=== PATIENT | male | born 1930 | race Caucasian/White ===

== ENCOUNTER 2021-03-30 23:01 | Inpatient (IN) ==
[2021-03-30 23:42] LABS: ABS Eosinophils 0.1 10^3/ul (0-0.6); ABS Lymphocytes 0.5 10^3/ul (1.0-4.8); ABS Monocytes 0.3 10^3/ul (0-0.8); Eosinophil % 0.8 %; Hematocrit 29 % (42-52); Hemoglobin 9.7 g/dL (14.0-18.0); Lymphocyte % 7.3 %; Mean Corpuscular HGB Conc 33 g/dL (31-36); Mean Corpuscular Hemoglobin 31 pg (27-31); Mean Corpuscular Volume 94 fL (80-94); Mean Platelet Volume 8.9 fL (7.4-10.4); Platelet Count 196 10^3/uL (150-450); Red Blood Count 3.09 10^6 /uL (4.18-5.48); Red Cell Distribution Width 13 % (10-15); White Blood Count 6.9 10^3/uL (3.5-10.8)
[2021-03-30 23:49] LABS: INR 1.12 (0.86-1.15)
[2021-03-30 23:58] LABS: ALT 10 U/L (7-52); AST 15 U/L (13-39); Albumin 3.4 g/dL (3.2-5.2); Alkaline Phosphatase 78 U/L (35-149); Anion Gap 11 mmol/L (2-11); Blood Urea Nitrogen 80 mg/dL (6-24); CO2 Carbon Dioxide 19 mmol/L (22-32); Chloride 100 mmol/L (101-111); Creatine Kinase 42 U/L (10-223); Globulin 3.4 g/dL (2-4); Glucose 301 mg/dL (70-100); Magnesium 2.3 mg/dL (1.9-2.7); Sodium 130 mmol/L (135-145); Total Protein 6.8 g/dL (6.4-8.9)
[2021-03-31] MEDS ORDERED: NS 0.9% 1000 ml BAG 1,000 ML IV SCH (00:15)
[2021-03-31 00:19] LABS: Ammonia 30 mcmol/L (16-53)
[2021-03-31 00:24] LABS: Urine Appearance Clear; Urine Bilirubin Negative (Negative); Urine Blood Negative (Negative); Urine Color Yellow; Urine Glucose Negative (Negative); Urine Ketones Negative (Negative); Urine Nitrite Negative (Negative); Urine Protein Negative (Negative); Urine Urobilinogen Negative (Negative)
[2021-03-31 00:25] LABS: Troponin I 0.05 ng/mL (<0.03)
[2021-03-31 00:50] LABS: BNP 433 pg/mL (<=100)
[2021-03-31 01:17] LABS: Acetaminophen < 15 mcg/mL; Alcohol, S < 13 mg/dL (<13); Salicylate < 2.50 mg/dL (<30)
[2021-03-31 01:33] LABS: TSH Ultra Thyroid Stim Horm 0.88 mcIU/mL (0.34-5.60)
[2021-03-31 05:35] LABS: Blood Urea Nitrogen 81 mg/dL (6-24)
[2021-03-31 05:37] LABS: Rapid COVID-19 Molecular Undetected (Undetected)
[2021-03-31 05:39] LABS: Urine Creatinine Concentration 80.48 mg/dL
[2021-03-31 05:40] LABS: Urine Benzodiazepine Screen None Detected (None Detect); Urine Cannabinoids Screen None Detected (None Detect); Urine Opiates Screen None Detected (None Detect)
[2021-03-31 05:53] LABS: Troponin I 0.15 ng/mL (<0.03)
[2021-03-31] MEDS ORDERED: Al Hydrox/Mg Hydrox/Simet LIQ 30 ML UDC PO PRN (16:52)
[2021-03-31] MEDS ORDERED: D5LR 1000 ml BAG 1,000 ML IV SCH (17:00)
[2021-03-31] MEDS ORDERED: Magnesium Hydroxide LIQ 30 ML UDC PO PRN (17:41)
[2021-03-31] MEDS ORDERED: Senna TAB 8.6 mg TAB PO PRN (17:41)
[2021-03-31] MEDS ORDERED: Polyethylene Glycol 3350 17 GM PACKET PO PRN (17:41)
[2021-03-31 18:16] LABS: Blood Urea Nitrogen 76 mg/dL (6-24); CO2 Carbon Dioxide 22 mmol/L (22-32); Calcium 9.2 mg/dL (8.6-10.3); Chloride 107 mmol/L (101-111); Glucose 90 mg/dL (70-100); Sodium 135 mmol/L (135-145)
[2021-03-31 18:19] LABS: Anion Gap 6 mmol/L (2-11); Potassium 5.6 mmol/L (3.5-5.0)
[2021-03-31 18:36] LABS: Troponin I 0.18 ng/mL (<0.03)
[2021-03-31 18:56] LABS: Urine Appearance Clear; Urine Bilirubin Negative (Negative); Urine Blood Negative (Negative); Urine Color Yellow; Urine Glucose Negative (Negative); Urine Ketones Negative (Negative); Urine Nitrite Negative (Negative); Urine Protein Negative (Negative); Urine Urobilinogen Negative (Negative)
[2021-03-31 19:25] LABS: C Reactive Protein 73.55 mg/L (<8.01)
[2021-03-31] MEDS ORDERED: Patiromer POWDER 8.4 GM PAK PO ONE (20:35)
[2021-03-31] MEDS ORDERED: Lidocaine Patch REMOVE PATCH PATCH OFF SCH (21:00)
[2021-03-31] MEDS ORDERED: Patiromer POWDER 8.4 GM PAK PO SCH (21:00)
[2021-03-31] MEDS: Lidocaine PATCH 5% PATCH TRANSDERM SCH (21:49)
[2021-03-31] MEDS: Heparin 5000 UNITS/ML 1 mL VIAL SUBCUT SCH (21:54)
[2021-03-31] MEDS: D5W 1/2 NS 1000 ml BAG 1,000 ML IV SCH (22:08)
[2021-04-01] MEDS: Magnesium Hydroxide LIQ 30 ML UDC PO SCH ×2 (02:29→07:57)
[2021-04-01 04:53] LABS: ABS Eosinophils 0.1 10^3/ul (0-0.6); ABS Lymphocytes 0.9 10^3/ul (1.0-4.8); ABS Monocytes 0.5 10^3/ul (0-0.8); ABS Neutrophils 5.7 10^3/ul (1.5-7.7); Eosinophil % 1.8 %; Hematocrit 28 % (42-52); Hemoglobin 9.4 g/dL (14.0-18.0); Lymphocyte % 12.8 %; Mean Corpuscular HGB Conc 34 g/dL (31-36); Mean Corpuscular Hemoglobin 32 pg (27-31); Mean Corpuscular Volume 94 fL (80-94); Mean Platelet Volume 9.1 fL (7.4-10.4); Platelet Count 193 10^3/uL (150-450); Red Blood Count 2.93 10^6 /uL (4.18-5.48); Red Cell Distribution Width 13 % (10-15); White Blood Count 7.3 10^3/uL (3.5-10.8)
[2021-04-01 05:07] LABS: Calcium 8.9 mg/dL (8.6-10.3)
[2021-04-01 05:14] LABS: Potassium 5.3 mmol/L (3.5-5.0)
[2021-04-01] MEDS: Heparin 5000 UNITS/ML 1 mL VIAL SUBCUT SCH (05:55)
[2021-04-01] MEDS: Lidocaine PATCH 5% PATCH TRANSDERM SCH (07:57)
[2021-04-01] MEDS: D5W 1/2 NS 1000 ml BAG 1,000 ML IV SCH (08:02)
[2021-04-01] MEDS ORDERED: Sodium Polystyrene ORAL.SUSP 15 GM/60 ML BTL PO ONE (09:00)
[2021-04-01 12:39] VITALS: BP 130/38
== END 2021-04-01 13:40 | DRG 694 ==
LOC: ED 23:01 → MED 03-31 16:53 → SUATTDRO 03-31 16:53 → MED 03-31 20:59
PROVIDERS: ADMIT Internal Medicine; ATTEND Hospitalist

== ENCOUNTER 2021-05-26 21:59 | Inpatient (IN) ==
[2021-05-26 22:40] LABS: ABS Eosinophils 0.2 10^3/ul (0-0.6); ABS Lymphocytes 0.7 10^3/ul (1.0-4.8); ABS Monocytes 0.7 10^3/ul (0-0.8); Eosinophil % 2.8 %; Hematocrit 25 % (42-52); Hemoglobin 8.2 g/dL (14.0-18.0); Lymphocyte % 8.7 %; Mean Corpuscular HGB Conc 33 g/dL (31-36); Mean Corpuscular Hemoglobin 32 pg (27-31); Mean Corpuscular Volume 96 fL (80-94); Mean Platelet Volume 8.2 fL (7.4-10.4); Platelet Count 232 10^3/uL (150-450); Red Cell Distribution Width 14 % (10-15); White Blood Count 7.7 10^3/uL (3.5-10.8)
[2021-05-26 22:47] LABS: Activated Partial Thrombo Time 30.4 seconds (26.0-38.0); INR 1.26 (0.86-1.15)
[2021-05-26 22:56] LABS: ALT 10 U/L (7-52); AST 14 U/L (13-39); Albumin 3.2 g/dL (3.2-5.2); Albumin/Globulin Ratio 0.9 (1-3); Alkaline Phosphatase 83 U/L (35-149); Anion Gap 6 mmol/L (2-11); Blood Urea Nitrogen 37 mg/dL (6-24); C Reactive Protein 37.77 mg/L (<8.01); CO2 Carbon Dioxide 26 mmol/L (22-32); Calcium 8.8 mg/dL (8.6-10.3); Chloride 106 mmol/L (101-111); Globulin 3.4 g/dL (2-4); Glucose 228 mg/dL (70-100); Potassium 4.6 mmol/L (3.5-5.0); Sodium 138 mmol/L (135-145); Total Protein 6.6 g/dL (6.4-8.9); eGFR CKD-EPI 49.6 (>60)
[2021-05-26] MEDS ORDERED: Furosemide 40 mg/4 ml IV VIAL IV ONE (23:01)
[2021-05-26 23:13] LABS: Troponin I 0.04 ng/mL (<0.03)
[2021-05-27] MEDS: cefTRIAXone 1 gm/50 mL NS BAG 1 GM/50 ML BAG IVPB SCH (01:40)
[2021-05-27 02:33] LABS: Troponin I 0.05 ng/mL (<0.03)
[2021-05-27] MEDS ORDERED: Dextrose 50% Syringe 50 ml 25 GM/50 ML SYRINGE IV PUSH PRN (02:56)
[2021-05-27] MEDS ORDERED: Magnesium Hydroxide LIQ 30 ML UDC PO PRN (03:21)
[2021-05-27] MEDS ORDERED: Senna TAB 8.6 mg TAB PO PRN (03:21)
[2021-05-27 03:52] LABS: Urine Appearance Cloudy; Urine Bilirubin Negative (Negative); Urine Blood 2+ (Negative); Urine Color Yellow; Urine Glucose Negative (Negative); Urine Ketones Negative (Negative); Urine Nitrite Positive (Negative); Urine Protein Negative (Negative); Urine Specific Gravity 1.009 (1.002-1.030); Urine Urobilinogen Negative (Negative)
[2021-05-27 04:11] LABS: Urine Bacteria 2+ (Absent); Urine Red Blood Cell 2+(6-10/hpf) (Absent); Urine Squamous Epithelial Cell Present (Absent); Urine White Blood Cell 3+(>20/hpf) (Absent)
[2021-05-27 06:26] LABS: ABS Eosinophils 0.3 10^3/ul (0-0.6); ABS Lymphocytes 0.9 10^3/ul (1.0-4.8); ABS Monocytes 0.8 10^3/ul (0-0.8); ABS Neutrophils 5.1 10^3/ul (1.5-7.7); Hematocrit 24 % (42-52); Hemoglobin 7.9 g/dL (14.0-18.0); Lymphocyte % 13.2 %; Mean Corpuscular HGB Conc 33 g/dL (31-36); Mean Corpuscular Hemoglobin 32 pg (27-31); Mean Corpuscular Volume 95 fL (80-94); Platelet Count 225 10^3/uL (150-450); Red Blood Count 2.49 10^6 /uL (4.18-5.48); Red Cell Distribution Width 14 % (10-15); White Blood Count 7.2 10^3/uL (3.5-10.8)
[2021-05-27 06:44] LABS: Anion Gap 5 mmol/L (2-11); Blood Urea Nitrogen 36 mg/dL (6-24); CO2 Carbon Dioxide 27 mmol/L (22-32); Calcium 8.7 mg/dL (8.6-10.3); Chloride 108 mmol/L (101-111); Glucose 154 mg/dL (70-100); Potassium 4.4 mmol/L (3.5-5.0); Sodium 140 mmol/L (135-145); eGFR CKD-EPI 51.4 (>60)
[2021-05-27 08:05] LABS: Troponin I 0.05 ng/mL (<0.03)
[2021-05-27 08:55] LABS: Ferritin 245.1 ng/mL (24-336)
[2021-05-27] MEDS ORDERED: Enoxaparin 40 MG/0.4 ML SYR SUBCUT SCH (09:00)
[2021-05-27] MEDS: Enoxaparin 40 MG/0.4 ML SYR SUBCUT SCH (11:08)
[2021-05-27] MEDS: Albuterol HFA INHALER 8 gm MDI INH PRN (17:23)
[2021-05-27] MEDS ORDERED: Albuterol/Ipratropium NEB.SOL (2.5/0.5 MG) 3 ML NEB.SOLN INH PRN (18:51)
[2021-05-27] MEDS ORDERED: Furosemide 20 mg/2 ml IV VIAL IV ONE (20:16)
[2021-05-27] MEDS ORDERED: Albuterol/Ipratropium NEB.SOL (2.5/0.5 MG) 3 ML NEB.SOLN INH ONE (20:17)
[2021-05-27 21:21] LABS: PCO2 Arterial 41 mmHg (35-45); PO2 Arterial 103 mmHg (80-100)
[2021-05-27] MEDS ORDERED: Iodixanol (CONTRAST) 320 MG/ML 100 ML SDV IV ONE (21:49)
[2021-05-27 21:55] LABS: Anion Gap 10 mmol/L (2-11); Blood Urea Nitrogen 39 mg/dL (6-24); CO2 Carbon Dioxide 24 mmol/L (22-32); Calcium 9.5 mg/dL (8.6-10.3); Chloride 106 mmol/L (101-111); Glucose 240 mg/dL (70-100); Potassium 4.3 mmol/L (3.5-5.0); Sodium 140 mmol/L (135-145); eGFR CKD-EPI 46.3 (>60)
[2021-05-27] MEDS ORDERED: Azithromycin 500 mg/250 ml NS 500 MG/250 ML BAG IVPB SCH (22:00)
[2021-05-27 22:01] LABS: ABS Basophils 0.1 10^3/ul (0-0.2); ABS Lymphocytes 0.5 10^3/ul (1.0-4.8); ABS Monocytes 0.7 10^3/ul (0-0.8); ABS Neutrophils 11.3 10^3/ul (1.5-7.7); Eosinophil % 0.1 %; Hematocrit 29 % (42-52); Hemoglobin 9.4 g/dL (14.0-18.0); Lymphocyte % 4.1 %; Mean Corpuscular HGB Conc 33 g/dL (31-36); Mean Corpuscular Hemoglobin 32 pg (27-31); Mean Corpuscular Volume 96 fL (80-94); Mean Platelet Volume 8.6 fL (7.4-10.4); Platelet Count 270 10^3/uL (150-450); Red Blood Count 2.98 10^6 /uL (4.18-5.48); Red Cell Distribution Width 14 % (10-15); White Blood Count 12.6 10^3/uL (3.5-10.8)
[2021-05-27 22:18] LABS: Troponin I 0.07 ng/mL (<0.03)
[2021-05-28 02:31] LABS: Troponin I 0.49 ng/mL (<0.03)
[2021-05-28 06:21] LABS: ABS Lymphocytes 0.7 10^3/ul (1.0-4.8); ABS Monocytes 0.6 10^3/ul (0-0.8); ABS Neutrophils 11.2 10^3/ul (1.5-7.7); Hematocrit 29 % (42-52); Hemoglobin 9.7 g/dL (14.0-18.0); Lymphocyte % 5.4 %; Mean Corpuscular HGB Conc 33 g/dL (31-36); Mean Corpuscular Hemoglobin 32 pg (27-31); Mean Corpuscular Volume 97 fL (80-94); Mean Platelet Volume 8.7 fL (7.4-10.4); Platelet Count 302 10^3/uL (150-450); Red Blood Count 3.04 10^6 /uL (4.18-5.48); Red Cell Distribution Width 14 % (10-15); White Blood Count 12.5 10^3/uL (3.5-10.8)
[2021-05-28 06:41] LABS: Anion Gap 10 mmol/L (2-11); Blood Urea Nitrogen 42 mg/dL (6-24); CO2 Carbon Dioxide 27 mmol/L (22-32); Calcium 9.7 mg/dL (8.6-10.3); Chloride 105 mmol/L (101-111); Glucose 188 mg/dL (70-100); Magnesium 2.1 mg/dL (1.9-2.7); Potassium 4.2 mmol/L (3.5-5.0); Sodium 142 mmol/L (135-145); eGFR CKD-EPI 45.6 (>60)
[2021-05-28 07:04] LABS: Troponin I 1.32 ng/mL (<0.03)
[2021-05-28] MEDS ORDERED: Furosemide 40 mg/4 ml IV VIAL ONE (07:35)
[2021-05-28] MEDS ORDERED: Prochlorperazine 5 mg/ml 2 ml VIAL (10 mg) IV PRN (07:49)
[2021-05-28] MEDS ORDERED: Nitro 2% OINT (Nitroglycerin) 1 INCH/PAK ONE (08:20)
[2021-05-28] MEDS ORDERED: Nitro 2% OINT (Nitroglycerin) 1 INCH/PAK TOPICAL ONE (08:25)
[2021-05-28] MEDS ORDERED: Furosemide 40 mg/4 ml IV VIAL IV ONE ×2 (08:25→14:42)
[2021-05-28] MEDS: cefTRIAXone 1 gm/50 mL NS BAG 1 GM/50 ML BAG IVPB SCH (08:26)
[2021-05-28] MEDS: Enoxaparin 40 MG/0.4 ML SYR SUBCUT SCH (08:32)
[2021-05-28] MEDS ORDERED: Enoxaparin 100 MG/ML SYR SUBCUT SCH ×2 (09:00→21:00)
[2021-05-28] MEDS ORDERED: Albuterol/Ipratropium NEB.SOL (2.5/0.5 MG) 3 ML NEB.SOLN INH PRN (09:10)
[2021-05-28 09:29] LABS: PCO2 Arterial 36 mmHg (35-45); PO2 Arterial 151 mmHg (80-100)
[2021-05-28] MEDS ORDERED: Perflutren Lipid Microsphere 3 ML VIAL ONE (11:02)
[2021-05-28] MEDS ORDERED: Enoxaparin 60 MG/0.6 ML SYR SUBCUT ONE (11:56)
[2021-05-28 14:05] LABS: Troponin I 1.31 ng/mL (<0.03)
[2021-05-28] MEDS: Cefepime 2 GM in Dextrose 2 GM/50 ML BAG IV SCH (15:44)
[2021-05-28 15:58] LABS: Ferritin 730.2 ng/mL (24-336)
[2021-05-28 19:07] LABS: Hematocrit 27 % (42-52); Hemoglobin 8.8 g/dL (14.0-18.0); Mean Corpuscular HGB Conc 32 g/dL (31-36); Mean Corpuscular Hemoglobin 31 pg (27-31); Mean Corpuscular Volume 96 fL (80-94); Mean Platelet Volume 8.5 fL (7.4-10.4); Platelet Count 278 10^3/uL (150-450); Red Blood Count 2.84 10^6 /uL (4.18-5.48); Red Cell Distribution Width 14 % (10-15); White Blood Count 12.5 10^3/uL (3.5-10.8)
[2021-05-28] MEDS: Pantoprazole VIAL 40 MG VIAL IV SCH (19:18)
[2021-05-28 19:26] LABS: Anion Gap 12 mmol/L (2-11); Blood Urea Nitrogen 51 mg/dL (6-24); CO2 Carbon Dioxide 27 mmol/L (22-32); Calcium 9.1 mg/dL (8.6-10.3); Chloride 104 mmol/L (101-111); Glucose 252 mg/dL (70-100); Potassium 3.8 mmol/L (3.5-5.0); Sodium 143 mmol/L (135-145); eGFR CKD-EPI 38.8 (>60)
[2021-05-28 19:28] LABS: Hypochromasia 1+; Polychromasia 1+
[2021-05-28 19:29] LABS: ABS Lymphocytes 0.3 10^3/ul (1.0-4.8); ABS Monocytes 0.6 10^3/ul (0-0.8); ABS Neutrophils 11.5 10^3/ul (1.5-7.7)
[2021-05-28 19:34] LABS: Troponin I 1.12 ng/mL (<0.03)
[2021-05-28 22:47] LABS: Hematocrit 26 % (42-52); Hemoglobin 8.6 g/dL (14.0-18.0); Mean Corpuscular HGB Conc 33 g/dL (31-36); Mean Corpuscular Hemoglobin 31 pg (27-31); Mean Corpuscular Volume 96 fL (80-94); Mean Platelet Volume 8.5 fL (7.4-10.4); Platelet Count 266 10^3/uL (150-450); Red Blood Count 2.74 10^6 /uL (4.18-5.48); Red Cell Distribution Width 14 % (10-15); White Blood Count 12.4 10^3/uL (3.5-10.8)
[2021-05-29] MEDS: Cefepime 2 GM in Dextrose 2 GM/50 ML BAG IV SCH ×2 (04:23→16:07)
[2021-05-29 05:56] LABS: ABS Lymphocytes 0.6 10^3/ul (1.0-4.8); ABS Neutrophils 10.1 10^3/ul (1.5-7.7); Eosinophil % 0.2 %; Hematocrit 26 % (42-52); Hemoglobin 8.4 g/dL (14.0-18.0); Lymphocyte % 4.9 %; Mean Corpuscular HGB Conc 32 g/dL (31-36); Mean Corpuscular Hemoglobin 31 pg (27-31); Mean Corpuscular Volume 97 fL (80-94); Mean Platelet Volume 8.9 fL (7.4-10.4); Platelet Count 252 10^3/uL (150-450); Red Blood Count 2.72 10^6 /uL (4.18-5.48); Red Cell Distribution Width 14 % (10-15); White Blood Count 11.7 10^3/uL (3.5-10.8)
[2021-05-29 06:35] LABS: Troponin I 0.99 ng/mL (<0.03)
[2021-05-29 06:39] LABS: Magnesium 2.1 mg/dL (1.9-2.7)
[2021-05-29 08:11] LABS: Albumin 3.1 g/dL (3.2-5.2); Calcium 8.5 mg/dL (8.6-10.3); Potassium 3.8 mmol/L (3.5-5.0); Total Bilirubin 0.5 mg/dL (0.2-1.0)
[2021-05-29 08:16] LABS: Globulin 3.1 g/dL (2-4); Total Protein 6.2 g/dL (6.4-8.9); eGFR CKD-EPI 36.5 (>60)
[2021-05-29] MEDS: Pantoprazole VIAL 40 MG VIAL IV SCH ×2 (08:35→22:05)
[2021-05-29] MEDS: Insulin GLARGINE 100 un/ml 10 ml VIAL SUBCUT SCH (08:35)
[2021-05-29] MEDS ORDERED: Enoxaparin 40 MG/0.4 ML SYR SUBCUT SCH (09:00)
[2021-05-29 09:54] LABS: % Iron Saturation 17 % (14 - 50); Total Iron Binding Capacity 198 mcg/dL (250 - 400)
[2021-05-29] MEDS: Albuterol/Ipratropium NEB.SOL (2.5/0.5 MG) 3 ML NEB.SOLN INH SCH ×3 (11:23→20:32)
[2021-05-29 18:42] LABS: Transferrin 168 mg/dL (200 - 360)
[2021-05-29 21:48] LABS: ABS Lymphocytes 0.7 10^3/ul (1.0-4.8); ABS Monocytes 0.8 10^3/ul (0-0.8); ABS Neutrophils 9.3 10^3/ul (1.5-7.7); Hematocrit 25 % (42-52); Hemoglobin 8.4 g/dL (14.0-18.0); Lymphocyte % 6.5 %; Mean Corpuscular HGB Conc 33 g/dL (31-36); Mean Corpuscular Hemoglobin 32 pg (27-31); Mean Corpuscular Volume 97 fL (80-94); Mean Platelet Volume 8.9 fL (7.4-10.4); Platelet Count 238 10^3/uL (150-450); Red Blood Count 2.59 10^6 /uL (4.18-5.48); Red Cell Distribution Width 14 % (10-15); White Blood Count 10.8 10^3/uL (3.5-10.8)
[2021-05-30] MEDS: Cefepime 2 GM in Dextrose 2 GM/50 ML BAG IV SCH ×2 (03:33→16:59)
[2021-05-30 07:12] LABS: ABS Lymphocytes 0.9 10^3/ul (1.0-4.8); ABS Monocytes 0.9 10^3/ul (0-0.8); ABS Neutrophils 8.1 10^3/ul (1.5-7.7); Eosinophil % 0.1 %; Hematocrit 25 % (42-52); Hemoglobin 8.3 g/dL (14.0-18.0); Lymphocyte % 9.1 %; Mean Corpuscular HGB Conc 33 g/dL (31-36); Mean Corpuscular Hemoglobin 32 pg (27-31); Mean Corpuscular Volume 97 fL (80-94); Mean Platelet Volume 8.6 fL (7.4-10.4); Platelet Count 223 10^3/uL (150-450); Red Blood Count 2.57 10^6 /uL (4.18-5.48); Red Cell Distribution Width 14 % (10-15); White Blood Count 9.9 10^3/uL (3.5-10.8)
[2021-05-30 07:21] LABS: Calcium 8.4 mg/dL (8.6-10.3); Potassium 3.4 mmol/L (3.5-5.0); eGFR CKD-EPI 41.5 (>60)
[2021-05-30] MEDS: Albuterol/Ipratropium NEB.SOL (2.5/0.5 MG) 3 ML NEB.SOLN INH SCH ×3 (08:15→15:44)
[2021-05-30] MEDS ORDERED: Magnesium Sulfate 2 gm BAG 2 GM/50 ML BAG IVPB ONE (08:19)
[2021-05-30] MEDS: Pantoprazole VIAL 40 MG VIAL IV SCH ×2 (08:58→21:22)
[2021-05-30] MEDS: Insulin GLARGINE 100 un/ml 10 ml VIAL SUBCUT SCH (09:00)
[2021-05-30] MEDS ORDERED: Furosemide 40 mg/4 ml IV VIAL IV ONE (11:20)
[2021-05-31] MEDS: Cefepime 2 GM in Dextrose 2 GM/50 ML BAG IV SCH ×2 (03:25→15:55)
[2021-05-31 05:43] LABS: ABS Basophils 0.1 10^3/ul (0-0.2); ABS Neutrophils 7.8 10^3/ul (1.5-7.7); Eosinophil % 0.1 %; Hematocrit 25 % (42-52); Hemoglobin 8.4 g/dL (14.0-18.0); Lymphocyte % 10.2 %; Mean Corpuscular HGB Conc 34 g/dL (31-36); Mean Corpuscular Hemoglobin 32 pg (27-31); Mean Corpuscular Volume 96 fL (80-94); Mean Platelet Volume 8.6 fL (7.4-10.4); Platelet Count 225 10^3/uL (150-450); Red Blood Count 2.59 10^6 /uL (4.18-5.48); Red Cell Distribution Width 14 % (10-15); White Blood Count 9.9 10^3/uL (3.5-10.8)
[2021-05-31 06:00] LABS: Calcium 8.4 mg/dL (8.6-10.3); Potassium 3.6 mmol/L (3.5-5.0)
[2021-05-31] MEDS ORDERED: Iron Sucrose 200 MG in NS 0.9% 100 ml BAG 100 ML IVPB ONE (06:38)
[2021-05-31 07:05] LABS: Magnesium 2.4 mg/dL (1.9-2.7)
[2021-05-31] MEDS ORDERED: Polyethylene Glycol 3350 17 GM PACKET PO PRN (07:08)
[2021-05-31] MEDS ORDERED: Furosemide 20 mg/2 ml IV VIAL IV ONE ×2 (07:15→08:59)
[2021-05-31] MEDS: Pantoprazole VIAL 40 MG VIAL IV SCH ×2 (08:09→20:23)
[2021-05-31] MEDS: Insulin GLARGINE 100 un/ml 10 ml VIAL SUBCUT SCH (08:13)
[2021-05-31] MEDS: Albuterol/Ipratropium NEB.SOL (2.5/0.5 MG) 3 ML NEB.SOLN INH SCH ×2 (08:13→12:17)
[2021-05-31] MEDS: Senna TAB 8.6 mg TAB PO SCH (20:23)
[2021-06-01] MEDS: Cefepime 2 GM in Dextrose 2 GM/50 ML BAG IV SCH ×2 (02:56→15:41)
[2021-06-01 06:27] LABS: ABS Eosinophils 0.1 10^3/ul (0-0.6); ABS Lymphocytes 0.9 10^3/ul (1.0-4.8); ABS Monocytes 0.9 10^3/ul (0-0.8); ABS Neutrophils 7.1 10^3/ul (1.5-7.7); Eosinophil % 0.9 %; Hematocrit 25 % (42-52); Hemoglobin 8.4 g/dL (14.0-18.0); Mean Corpuscular HGB Conc 34 g/dL (31-36); Mean Corpuscular Hemoglobin 32 pg (27-31); Mean Corpuscular Volume 96 fL (80-94); Mean Platelet Volume 8.8 fL (7.4-10.4); Platelet Count 215 10^3/uL (150-450); Red Blood Count 2.61 10^6 /uL (4.18-5.48); Red Cell Distribution Width 14 % (10-15); White Blood Count 9.1 10^3/uL (3.5-10.8)
[2021-06-01 06:48] LABS: Calcium 8.3 mg/dL (8.6-10.3); Potassium 3.2 mmol/L (3.5-5.0); eGFR CKD-EPI 40.6 (>60)
[2021-06-01] MEDS ORDERED: Furosemide 40 mg/4 ml IV VIAL IV ONE (08:59)
[2021-06-01] MEDS: Insulin GLARGINE 100 un/ml 10 ml VIAL SUBCUT SCH (09:55)
[2021-06-01] MEDS ORDERED: Potassium Chlor 20 meq TAB.ER PO ONE (12:56)
[2021-06-01] MEDS: Albuterol/Ipratropium NEB.SOL (2.5/0.5 MG) 3 ML NEB.SOLN INH SCH ×2 (13:09→19:55)
[2021-06-01] MEDS ORDERED: Insulin GLARGINE 100 un/ml 10 ml VIAL SUBCUT SCH (21:00)
[2021-06-01] MEDS: Senna TAB 8.6 mg TAB PO SCH (21:51)
[2021-06-02] MEDS: Cefepime 2 GM in Dextrose 2 GM/50 ML BAG IV SCH ×2 (03:31→16:06)
[2021-06-02 05:12] LABS: Hematocrit 26 % (42-52); Hemoglobin 8.3 g/dL (14.0-18.0); Mean Corpuscular HGB Conc 33 g/dL (31-36); Mean Corpuscular Hemoglobin 31 pg (27-31); Mean Corpuscular Volume 97 fL (80-94); Mean Platelet Volume 9.3 fL (7.4-10.4); Platelet Count 232 10^3/uL (150-450); Red Blood Count 2.64 10^6 /uL (4.18-5.48); Red Cell Distribution Width 14 % (10-15)
[2021-06-02 05:27] LABS: Calcium 8.5 mg/dL (8.6-10.3); Magnesium 2.2 mg/dL (1.9-2.7); Potassium 3.5 mmol/L (3.5-5.0); eGFR CKD-EPI 42.1 (>60)
[2021-06-02] MEDS ORDERED: Furosemide 40 mg/4 ml IV VIAL ONE (08:27)
[2021-06-02] MEDS ORDERED: Furosemide 40 mg/4 ml IV VIAL IV ONE ×2 (08:32→15:30)
[2021-06-02] MEDS: Albuterol/Ipratropium NEB.SOL (2.5/0.5 MG) 3 ML NEB.SOLN INH SCH ×3 (08:36→20:17)
[2021-06-02] MEDS: Iron Sucrose 200 MG in NS 0.9% 100 ml BAG 100 ML IVPB SCH (14:00)
[2021-06-02] MEDS: Senna TAB 8.6 mg TAB PO SCH (22:21)
[2021-06-02] MEDS: Insulin GLARGINE 100 un/ml 10 ml VIAL SUBCUT SCH (22:36)
[2021-06-03] MEDS: Cefepime 2 GM in Dextrose 2 GM/50 ML BAG IV SCH (03:56)
[2021-06-03 07:12] LABS: ABS Basophils 0.1 10^3/ul (0-0.2); ABS Eosinophils 0.2 10^3/ul (0-0.6); ABS Monocytes 1.3 10^3/ul (0-0.8); ABS Neutrophils 11.2 10^3/ul (1.5-7.7); Eosinophil % 1.7 %; Hematocrit 26 % (42-52); Hemoglobin 8.7 g/dL (14.0-18.0); Lymphocyte % 7.2 %; Mean Corpuscular HGB Conc 33 g/dL (31-36); Mean Corpuscular Hemoglobin 32 pg (27-31); Mean Corpuscular Volume 97 fL (80-94); Mean Platelet Volume 9.4 fL (7.4-10.4); Platelet Count 223 10^3/uL (150-450); Red Blood Count 2.72 10^6 /uL (4.18-5.48); Red Cell Distribution Width 14 % (10-15); White Blood Count 13.8 10^3/uL (3.5-10.8)
[2021-06-03 07:30] LABS: Calcium 8.4 mg/dL (8.6-10.3); Magnesium 1.9 mg/dL (1.9-2.7); Potassium 3.2 mmol/L (3.5-5.0); eGFR CKD-EPI 42.1 (>60)
[2021-06-03] MEDS: Albuterol/Ipratropium NEB.SOL (2.5/0.5 MG) 3 ML NEB.SOLN INH SCH ×3 (07:44→19:39)
[2021-06-03] MEDS ORDERED: Potassium Chlor 20 meq TAB.ER PO ONE (08:00)
[2021-06-03] MEDS ORDERED: Furosemide 40 mg/4 ml IV VIAL IV SCH (09:00)
[2021-06-03] MEDS: Iron Sucrose 200 MG in NS 0.9% 100 ml BAG 100 ML IVPB SCH (09:24)
[2021-06-03 12:22] LABS: C Reactive Protein 38.78 mg/L (<8.01)
[2021-06-03] MEDS ORDERED: Furosemide 40 mg/4 ml IV VIAL IV ONE (15:30)
[2021-06-03] MEDS: Senna TAB 8.6 mg TAB PO SCH (21:52)
[2021-06-03] MEDS: Insulin GLARGINE 100 un/ml 10 ml VIAL SUBCUT SCH (21:52)
[2021-06-04] MEDS: Albuterol HFA INHALER 8 gm MDI INH PRN (03:21)
[2021-06-04 06:11] LABS: ABS Eosinophils 0.1 10^3/ul (0-0.6); ABS Lymphocytes 0.9 10^3/ul (1.0-4.8); ABS Monocytes 1.3 10^3/ul (0-0.8); Eosinophil % 0.9 %; Hematocrit 27 % (42-52); Hemoglobin 8.9 g/dL (14.0-18.0); Lymphocyte % 5.6 %; Mean Corpuscular HGB Conc 33 g/dL (31-36); Mean Corpuscular Hemoglobin 32 pg (27-31); Mean Corpuscular Volume 97 fL (80-94); Mean Platelet Volume 10.1 fL (7.4-10.4); Platelet Count 230 10^3/uL (150-450); Red Blood Count 2.76 10^6 /uL (4.18-5.48); Red Cell Distribution Width 14 % (10-15); White Blood Count 16.4 10^3/uL (3.5-10.8)
[2021-06-04 06:45] LABS: Potassium 3.3 mmol/L (3.5-5.0)
[2021-06-04 06:46] LABS: Calcium 8.4 mg/dL (8.6-10.3); Magnesium 1.8 mg/dL (1.9-2.7); eGFR CKD-EPI 40.6 (>60)
[2021-06-04] MEDS: Albuterol/Ipratropium NEB.SOL (2.5/0.5 MG) 3 ML NEB.SOLN INH SCH (07:30)
[2021-06-04] MEDS ORDERED: Potassium Chlor 20 meq TAB.ER PO ONE (07:44)
[2021-06-04] MEDS ORDERED: Albuterol/Ipratropium NEB.SOL (2.5/0.5 MG) 3 ML NEB.SOLN INH PRN (09:17)
[2021-06-04] MEDS: Furosemide 40 mg/4 ml IV VIAL IV SCH (10:57)
[2021-06-04 11:40] LABS: Urine Appearance Cloudy; Urine Bilirubin Negative (Negative); Urine Blood 2+ (Negative); Urine Color Yellow; Urine Glucose Negative (Negative); Urine Ketones Negative (Negative); Urine Nitrite Negative (Negative); Urine Protein 2+(100 mg/dL) (Negative); Urine Specific Gravity 1.015 (1.002-1.030); Urine Urobilinogen Negative (Negative)
[2021-06-04 11:59] LABS: Urine Bacteria Absent (Absent); Urine Granular Casts Present (Absent); Urine Red Blood Cell Trace(0-2/hpf) (Absent); Urine White Blood Cell Absent (Absent)
[2021-06-04] MEDS: Senna TAB 8.6 mg TAB PO SCH (21:19)
[2021-06-04] MEDS: Insulin GLARGINE 100 un/ml 10 ml VIAL SUBCUT SCH (21:21)
[2021-06-05 05:51] LABS: ABS Basophils 0.1 10^3/ul (0-0.2); ABS Eosinophils 0.1 10^3/ul (0-0.6); ABS Lymphocytes 0.9 10^3/ul (1.0-4.8); ABS Monocytes 1.4 10^3/ul (0-0.8); ABS Neutrophils 13.9 10^3/ul (1.5-7.7); Eosinophil % 0.8 %; Hematocrit 28 % (42-52); Hemoglobin 9.1 g/dL (14.0-18.0); Lymphocyte % 5.5 %; Mean Corpuscular HGB Conc 33 g/dL (31-36); Mean Corpuscular Hemoglobin 32 pg (27-31); Mean Corpuscular Volume 97 fL (80-94); Mean Platelet Volume 9.4 fL (7.4-10.4); Platelet Count 241 10^3/uL (150-450); Red Blood Count 2.85 10^6 /uL (4.18-5.48); Red Cell Distribution Width 14 % (10-15); White Blood Count 16.4 10^3/uL (3.5-10.8)
[2021-06-05 06:01] LABS: Calcium 8.4 mg/dL (8.6-10.3); Magnesium 1.9 mg/dL (1.9-2.7); Potassium 3.7 mmol/L (3.5-5.0)
[2021-06-05 06:07] LABS: eGFR CKD-EPI 39.7 (>60)
[2021-06-05] MEDS: Furosemide 40 mg/4 ml IV VIAL IV SCH (08:58)
[2021-06-05] MEDS: Insulin GLARGINE 100 un/ml 10 ml VIAL SUBCUT SCH (21:49)
[2021-06-05] MEDS: Senna TAB 8.6 mg TAB PO SCH (21:50)
[2021-06-06 06:14] LABS: ABS Eosinophils 0.2 10^3/ul (0-0.6); ABS Monocytes 1.3 10^3/ul (0-0.8); ABS Neutrophils 12.1 10^3/ul (1.5-7.7); Eosinophil % 1.3 %; Hematocrit 29 % (42-52); Hemoglobin 9.2 g/dL (14.0-18.0); Mean Corpuscular HGB Conc 32 g/dL (31-36); Mean Corpuscular Hemoglobin 31 pg (27-31); Mean Corpuscular Volume 96 fL (80-94); Mean Platelet Volume 9.6 fL (7.4-10.4); Platelet Count 253 10^3/uL (150-450); Red Blood Count 2.99 10^6 /uL (4.18-5.48); Red Cell Distribution Width 14 % (10-15); White Blood Count 14.6 10^3/uL (3.5-10.8)
[2021-06-06 06:31] LABS: Calcium 8.3 mg/dL (8.6-10.3); Magnesium 1.8 mg/dL (1.9-2.7); Potassium 3.7 mmol/L (3.5-5.0); eGFR CKD-EPI 45.2 (>60)
[2021-06-06 14:31] LABS: Rapid COVID-19 Molecular Undetected (Undetected)
[2021-06-06] MEDS: Insulin GLARGINE 100 un/ml 10 ml VIAL SUBCUT SCH (21:33)
[2021-06-06] MEDS: Senna TAB 8.6 mg TAB PO SCH (22:38)
[2021-06-07 05:10] LABS: ABS Eosinophils 0.2 10^3/ul (0-0.6); ABS Lymphocytes 1.1 10^3/ul (1.0-4.8); ABS Monocytes 1.2 10^3/ul (0-0.8); ABS Neutrophils 11.1 10^3/ul (1.5-7.7); Eosinophil % 1.2 %; Hematocrit 28 % (42-52); Lymphocyte % 7.9 %; Mean Corpuscular HGB Conc 33 g/dL (31-36); Mean Corpuscular Hemoglobin 31 pg (27-31); Mean Corpuscular Volume 96 fL (80-94); Mean Platelet Volume 9.8 fL (7.4-10.4); Platelet Count 239 10^3/uL (150-450); Red Blood Count 2.86 10^6 /uL (4.18-5.48); Red Cell Distribution Width 14 % (10-15); White Blood Count 13.5 10^3/uL (3.5-10.8)
[2021-06-07 05:30] LABS: Magnesium 1.7 mg/dL (1.9-2.7); Potassium 3.3 mmol/L (3.5-5.0); eGFR CKD-EPI 40.6 (>60)
[2021-06-07] MEDS ORDERED: Potassium Chlor 20 meq TAB.ER PO ONE (07:08)
[2021-06-07 12:34] VITALS: BP 116/32
== END 2021-06-07 14:12 | DRG 280 ==
LOC: EDHOLD 21:59 → ED 21:59 → SUATTDRO 05-27 01:23 → MED 05-27 19:51 → ICU 05-28 19:46 → SUATTDRO 05-28 19:47 → SSU 05-30 16:19
PROVIDERS: ADMIT Hospitalist; ATTEND Internal Medicine

== ENCOUNTER 2021-11-07 10:54 | Inpatient (IN) ==
[2021-11-07 12:04] LABS: ABS Lymphocytes 0.2 10^3/ul (1.0-4.8); ABS Monocytes 0.7 10^3/ul (0-0.8); ABS Neutrophils 9.7 10^3/ul (1.5-7.7); Hematocrit 27 % (42-52); Hemoglobin 8.7 g/dL (14.0-18.0); Lymphocyte % 2.2 %; Mean Corpuscular HGB Conc 33 g/dL (31-36); Mean Corpuscular Hemoglobin 31 pg (27-31); Mean Corpuscular Volume 95 fL (80-94); Mean Platelet Volume 8.2 fL (7.4-10.4); Platelet Count 229 10^3/uL (150-450); Red Blood Count 2.81 10^6 /uL (4.18-5.48); Red Cell Distribution Width 15 % (10-15); White Blood Count 10.6 10^3/uL (3.5-10.8)
[2021-11-07 12:35] LABS: Albumin 2.4 g/dL (3.2-5.2); Albumin/Globulin Ratio 0.9 (1-3); Globulin 2.6 g/dL (2-4); Potassium 3.9 mmol/L (3.5-5.0); Total Bilirubin 0.4 mg/dL (0.2-1.0); eGFR CKD-EPI 22.9 (>60)
[2021-11-07] MEDS ORDERED: Lactated Ringers 500 ml BAG 500 ML IV ONE (12:56)
[2021-11-07 13:26] LABS: High Sensitivity Troponin 1 Hr 38 pg/mL (<20)
[2021-11-07 16:49] LABS: PCO2 Arterial 39 mmHg (35-45); PO2 Arterial 108 mmHg (80-100)
[2021-11-07] MEDS ORDERED: Ondansetron 4 mg VIAL 2 MG/ML 2 ml VIAL IV PRN (17:34)
[2021-11-07 17:41] LABS: Urine Appearance Turbid; Urine Bilirubin 1+ (Negative); Urine Blood 2+ (Negative); Urine Color Amber; Urine Glucose Negative (Negative); Urine Ketones Negative (Negative); Urine Nitrite Negative (Negative); Urine Protein 1+(30 mg/dL) (Negative); Urine Specific Gravity 1.017 (1.002-1.030); Urine Urobilinogen Negative (Negative)
[2021-11-07 17:51] LABS: Urine Bacteria 1+ (Absent); Urine Red Blood Cell 3+(>10/hpf) (Absent); Urine Squamous Epithelial Cell Present (Absent); Urine White Blood Cell 3+(>20/hpf) (Absent)
[2021-11-07] MEDS ORDERED: D5W 1000 ml BAG 1,000 ML IV SCH (18:00)
[2021-11-07] MEDS ORDERED: cefTRIAXone 1 gm/50 mL D5W 1 GM/50 ML BAG IV ONE (18:15)
[2021-11-07] MEDS: Pantoprazole VIAL 40 MG VIAL IV SCH (18:16)
[2021-11-07 22:10] LABS: C Reactive Protein 223.81 mg/L (<8.01)
[2021-11-07 22:46] LABS: Osmolality Serum 331 mOsm/kg (275-295)
[2021-11-07 22:52] LABS: Urine Osmo 368 mOsm/kg (150-1150)
[2021-11-07] MEDS: Heparin 5000 UNITS/ML 1 mL VIAL SUBCUT SCH (23:12)
[2021-11-07] MEDS: Senna TAB 8.6 mg TAB PO SCH (23:15)
[2021-11-07] MEDS: oxyCODONE SR 10 mg TAB PO SCH ×2 (23:15→23:46)
[2021-11-08] MEDS: Heparin 5000 UNITS/ML 1 mL VIAL SUBCUT SCH ×3 (05:54→20:24)
[2021-11-08 06:53] LABS: ABS Lymphocytes 0.5 10^3/ul (1.0-4.8); ABS Monocytes 0.7 10^3/ul (0-0.8); ABS Neutrophils 16.7 10^3/ul (1.5-7.7); Hematocrit 27 % (42-52); Hemoglobin 9.1 g/dL (14.0-18.0); Mean Corpuscular HGB Conc 33 g/dL (31-36); Mean Corpuscular Hemoglobin 32 pg (27-31); Mean Corpuscular Volume 95 fL (80-94); Mean Platelet Volume 8.8 fL (7.4-10.4); Platelet Count 247 10^3/uL (150-450); Red Blood Count 2.87 10^6 /uL (4.18-5.48); Red Cell Distribution Width 15 % (10-15)
[2021-11-08 07:09] LABS: Calcium 8.2 mg/dL (8.6-10.3); Magnesium 1.9 mg/dL (1.9-2.7); Potassium 3.7 mmol/L (3.5-5.0)
[2021-11-08] MEDS: oxyCODONE SR 10 mg TAB PO SCH ×2 (08:58→20:21)
[2021-11-08] MEDS: NS 0.9% 1000 ml BAG 1,000 ML IV SCH ×2 (11:37→22:18)
[2021-11-08] MEDS: cefTRIAXone 1 gm/50 mL D5W 1 GM/50 ML BAG IV SCH (17:51)
[2021-11-08] MEDS: Pantoprazole VIAL 40 MG VIAL IV SCH (17:51)
[2021-11-08] MEDS: Senna TAB 8.6 mg TAB PO SCH (20:20)
[2021-11-09] MEDS: Heparin 5000 UNITS/ML 1 mL VIAL SUBCUT SCH (04:30)
[2021-11-09] MEDS: oxyCODONE SR 10 mg TAB PO SCH (08:13)
[2021-11-09 08:26] LABS: ABS Lymphocytes 0.7 10^3/ul (1.0-4.8); ABS Monocytes 0.8 10^3/ul (0-0.8); ABS Neutrophils 17.6 10^3/ul (1.5-7.7); Eosinophil % 0.1 %; Hematocrit 28 % (42-52); Hemoglobin 8.9 g/dL (14.0-18.0); Lymphocyte % 3.9 %; Mean Corpuscular HGB Conc 32 g/dL (31-36); Mean Corpuscular Hemoglobin 31 pg (27-31); Mean Corpuscular Volume 96 fL (80-94); Platelet Count 231 10^3/uL (150-450); Red Blood Count 2.91 10^6 /uL (4.18-5.48); Red Cell Distribution Width 15 % (10-15); White Blood Count 19.2 10^3/uL (3.5-10.8)
[2021-11-09 08:40] LABS: Calcium 8.3 mg/dL (8.6-10.3); Potassium 3.4 mmol/L (3.5-5.0); eGFR CKD-EPI 28.6 (>60)
[2021-11-09] MEDS: Potassium Chlor 10 meq TAB PO ONE ×2 (13:15→14:39)
[2021-11-09 13:51] LABS: ABS Lymphocytes 0.2 10^3/ul (1.0-4.8); ABS Monocytes 0.6 10^3/ul (0-0.8); ABS Neutrophils 12.9 10^3/ul (1.5-7.7); Hematocrit 26 % (42-52); Hemoglobin 8.3 g/dL (14.0-18.0); Lymphocyte % 1.7 %; Mean Corpuscular HGB Conc 32 g/dL (31-36); Mean Corpuscular Hemoglobin 31 pg (27-31); Mean Corpuscular Volume 95 fL (80-94); Mean Platelet Volume 8.3 fL (7.4-10.4); Platelet Count 240 10^3/uL (150-450); Red Blood Count 2.73 10^6 /uL (4.18-5.48); Red Cell Distribution Width 15 % (10-15); White Blood Count 13.7 10^3/uL (3.5-10.8)
[2021-11-09 14:51] LABS: Calcium 7.8 mg/dL (8.6-10.3); Potassium 3.4 mmol/L (3.5-5.0); eGFR CKD-EPI 26.9 (>60)
[2021-11-09] MEDS ORDERED: Potassium Chloride LIQUID 20 MEQ/15 ML LIQUID PO ONE (15:28)
[2021-11-09] MEDS ORDERED: NS 0.45% 1000 ml BAG 1,000 ML IV SCH (17:00)
[2021-11-09] MEDS: Pantoprazole VIAL 40 MG VIAL IV SCH (17:08)
[2021-11-09] MEDS: cefTRIAXone 1 gm/50 mL D5W 1 GM/50 ML BAG IV SCH (17:18)
[2021-11-09] MEDS ORDERED: KCL 20 MEQ/100 ML IVPREMIX 20 MEQ/100 ML BAG IV ONE (17:26)
[2021-11-09] MEDS ORDERED: KCL 20 MEQ/100 ML IVPREMIX 20 MEQ/100 ML BAG IV SCH (18:00)
[2021-11-09] MEDS: Senna TAB 8.6 mg TAB PO SCH (19:39)
[2021-11-09] MEDS: Metoprolol Tartrate 5 mg VIAL 5 ml VIAL (1 mg/ml) IV SCH (20:29)
[2021-11-09 21:22] LABS: Hematocrit 26 % (42-52); Hemoglobin 8.1 g/dL (14.0-18.0)
[2021-11-10] MEDS: Pantoprazole VIAL 40 MG VIAL IV SCH ×2 (04:36→17:44)
[2021-11-10 06:02] LABS: ABS Lymphocytes 0.6 10^3/ul (1.0-4.8); ABS Monocytes 0.6 10^3/ul (0-0.8); ABS Neutrophils 11.1 10^3/ul (1.5-7.7); Eosinophil % 0.1 %; Hematocrit 25 % (42-52); Hemoglobin 7.9 g/dL (14.0-18.0); Lymphocyte % 4.8 %; Mean Corpuscular HGB Conc 32 g/dL (31-36); Mean Corpuscular Hemoglobin 31 pg (27-31); Mean Corpuscular Volume 96 fL (80-94); Platelet Count 243 10^3/uL (150-450); Red Blood Count 2.59 10^6 /uL (4.18-5.48); Red Cell Distribution Width 15 % (10-15); White Blood Count 12.3 10^3/uL (3.5-10.8)
[2021-11-10 06:35] LABS: Calcium 8.1 mg/dL (8.6-10.3); Potassium 3.9 mmol/L (3.5-5.0); eGFR CKD-EPI 33.1 (>60)
[2021-11-10] MEDS ORDERED: D5W 1000 ml BAG 1,000 ML IV SCH ×2 (08:00→14:36)
[2021-11-10] MEDS: Metoprolol Tartrate 5 mg VIAL 5 ml VIAL (1 mg/ml) IV SCH ×2 (09:03→21:36)
[2021-11-10] MEDS ORDERED: Al Hydrox/Mg Hydrox/Simet LIQ 30 ML UDC PO ONE (14:38)
[2021-11-10 14:55] LABS: Hematocrit 27 % (42-52); Hemoglobin 8.5 g/dL (14.0-18.0)
[2021-11-10 15:22] LABS: Calcium 7.8 mg/dL (8.6-10.3); Potassium 3.4 mmol/L (3.5-5.0); eGFR CKD-EPI 38.8 (>60)
[2021-11-10] MEDS: cefTRIAXone 1 gm/50 mL D5W 1 GM/50 ML BAG IV SCH (17:44)
[2021-11-10] MEDS: Senna TAB 8.6 mg TAB PO SCH (21:32)
[2021-11-11] MEDS: Pantoprazole VIAL 40 MG VIAL IV SCH ×2 (04:37→17:32)
[2021-11-11 05:20] LABS: Hematocrit 25 % (42-52); Hemoglobin 8.2 g/dL (14.0-18.0); Mean Corpuscular HGB Conc 32 g/dL (31-36); Mean Corpuscular Hemoglobin 31 pg (27-31); Mean Corpuscular Volume 95 fL (80-94); Mean Platelet Volume 8.5 fL (7.4-10.4); Platelet Count 234 10^3/uL (150-450); Red Blood Count 2.68 10^6 /uL (4.18-5.48); Red Cell Distribution Width 16 % (10-15); White Blood Count 8.1 10^3/uL (3.5-10.8)
[2021-11-11 05:36] LABS: Calcium 7.8 mg/dL (8.6-10.3); Potassium 3.5 mmol/L (3.5-5.0); eGFR CKD-EPI 48.3 (>60)
[2021-11-11 07:31] LABS: Acanthocytes 2+; Anisocytosis 1+
[2021-11-11 07:32] LABS: ABS Lymphocytes 0.5 10^3/ul (1.0-4.8); ABS Monocytes 0.6 10^3/ul (0-0.8); ABS Neutrophils 6.9 10^3/ul (1.5-7.7); Eosinophil % 0.4 %; Lymphocyte % 6.2 %
[2021-11-11] MEDS: Metoprolol Tartrate 5 mg VIAL 5 ml VIAL (1 mg/ml) IV SCH (08:08)
[2021-11-11 09:11] LABS: INR 1.24 (0.86-1.15)
[2021-11-11 10:06] LABS: Vitamin B12 1009 pg/mL (180-914)
[2021-11-11 12:10] LABS: CRP High Sensitivity > 80.00 mg/L (<2.00)
[2021-11-11] MEDS: cefTRIAXone 1 gm/50 mL D5W 1 GM/50 ML BAG IV SCH (17:33)
[2021-11-11] MEDS: Senna TAB 8.6 mg TAB PO SCH (21:55)
[2021-11-12] MEDS: Pantoprazole VIAL 40 MG VIAL IV SCH ×2 (05:46→18:21)
[2021-11-12] MEDS: cefTRIAXone 1 gm/50 mL D5W 1 GM/50 ML BAG IV SCH (18:21)
[2021-11-12] MEDS: Senna TAB 8.6 mg TAB PO SCH (20:04)
[2021-11-13] MEDS: Pantoprazole VIAL 40 MG VIAL IV SCH (05:48)
[2021-11-13 06:26] LABS: Hematocrit 24 % (42-52); Hemoglobin 7.7 g/dL (14.0-18.0); Mean Corpuscular HGB Conc 32 g/dL (31-36); Mean Corpuscular Hemoglobin 30 pg (27-31); Mean Corpuscular Volume 94 fL (80-94); Mean Platelet Volume 8.5 fL (7.4-10.4); Platelet Count 194 10^3/uL (150-450); Red Blood Count 2.53 10^6 /uL (4.18-5.48); Red Cell Distribution Width 15 % (10-15); White Blood Count 11.3 10^3/uL (3.5-10.8)
[2021-11-13 06:52] LABS: C Reactive Protein 77.17 mg/L (<8.01); Calcium 7.4 mg/dL (8.6-10.3); Potassium 3.3 mmol/L (3.5-5.0)
[2021-11-13] MEDS ORDERED: Potassium Chlor 20 meq TAB.ER PO ONE (07:45)
[2021-11-13 07:47] LABS: ABS Eosinophils 0.1 10^3/ul (0-0.6); ABS Lymphocytes 0.8 10^3/ul (1.0-4.8); ABS Monocytes 0.8 10^3/ul (0-0.8); ABS Neutrophils 9.6 10^3/ul (1.5-7.7); Eosinophil % 0.6 %; Lymphocyte % 7.3 %
[2021-11-13 08:16] LABS: Magnesium 1.8 mg/dL (1.9-2.7)
[2021-11-13] MEDS ORDERED: Morphine ORAL CONCENTRATE 5 MG/0.25 ML ORAL.SYRIN SL PRN (16:35)
[2021-11-13] MEDS ORDERED: Ondansetron ODT 4 mg TAB 4 MG TAB SL PRN (16:35)
[2021-11-13] MEDS: cefTRIAXone 1 gm/50 mL D5W 1 GM/50 ML BAG IV SCH (17:57)
[2021-11-13] MEDS: Senna TAB 8.6 mg TAB PO SCH (21:38)
[2021-11-14 09:49] VITALS: BP 128/46
== END 2021-11-14 13:44 | disposition short-term general hospital (02) | DRG 194 ==
LOC: ED 10:54 → EDHOLD 17:23 → SUATTDRO 17:23 → MED 21:15
PROVIDERS: ADMIT Internal Medicine; ATTEND Student in an Organized Health Care Education/Training Program